=== PATIENT | male | born 1950 | race Caucasian/White ===

== ENCOUNTER 2017-11-07 09:00 | Outpatient (CLI) | payer MEDICARE, BC ==
--- NOTE | 2017-11-07 11:01 | MRI ---
MRI LEFT SHOULDER WITHOUT CONTRAST: HISTORY: M25.512, left shoulder pain. COMPARISON: None. FINDINGS: BICEPS: Mild extraarticular biceps tendon synovial fluid. Mild intraarticular tendinosis. GLENOID LABRUM: Abnormal increased fluid signal within the posterior labrum that is sequelae of degeneration and tear . ROTATOR CUFF: The subscapularis is intact. No full-thickness perforation of the rotator cuff. Mild bursal surface fraying of supraspinatus tendon. No full-thickness perforation. Minimal tendinosis supra- and infraspinatus tendons. SOFT TISSUES: There is extensive edema of the axillary process and inferior glenohumeral ligament. The subcoracoid fat is maintained. Low-grade edema of the rotator interval. BONES: No fracture and no malalignment. Mild degenerative disease of acromioclavicular joint as expected fo r age. MUSCLES: Normal muscle signal and bulk. IMPRESSION: 1. Extensive fluid signal along the axillary pouch and inferior glenohumeral ligament which is thick ened suggesting capsulitis. There is also small volume subacromial subdeltoid bursa effusion. 2. Minimal bursal surface fraying of the supraspinatus tendon. No full-thickness tear or perforatio n. POS: [facility]
== END 2017-11-07 09:01 | disposition home or self-care (01) ==
LOC: SCSMRI 09:00
PROVIDERS: ATTEND Orthopaedic Surgery
DX: M25.512 Pain in left shoulder (principal); M25.412 Effusion, left shoulder

== ENCOUNTER 2019-10-06 08:34 | Outpatient (CLI) | payer MEDICARE, BC ==
--- NOTE | 2019-10-06 15:48 | NM ---
NUCLEAR MEDICINE [place] BRAIN SCAN: DATE: 10/06/2019 HISTORY: 69-year-old male with ICD-10: G63, polyneuropathy in diseases classified elsewhere. TECHNIQUE: 4.6 mCi I-123 Ioflupane injected IV. 3 hours later, SPECT of brain obtained. FINDINGS: There is bilaterally symmetrical distribution of radiopharmaceutical in the bilateral caudate nuclei and putamina. IMPRESSION: Normal. POS: [facility]
== END 2019-10-06 08:35 | disposition home or self-care (01) ==
LOC: NM 08:34
PROVIDERS: ATTEND Psychiatry & Neurology Neurology
DX: G63 Polyneuropathy in diseases classified elsewhere (principal)
CPT/HCPCS: 78803; A9584

== ENCOUNTER 2021-01-11 13:25 | Outpatient (CLI) | payer MEDICARE, BC | END 2021-01-11 13:26 | disposition home or self-care (01) | LOC: CTENTCT 13:25 | PROVIDERS: ATTEND Otolaryngology Plastic Surgery within the Head & Neck | DX: J32.9 Chronic sinusitis, unspecified (principal) | CPT/HCPCS: 70486 ==

== ENCOUNTER 2021-01-26 08:22 | Outpatient (CLI) | payer MEDICARE, BC ==
[2021-01-26 10:22] LABS: Hemoglobin 13.9 g/dL (13.5-17.5)
[2021-01-26 10:47] LABS: Anion Gap 15 mmol/L (10-20); BUN (Urea Nitrogen) 18 mg/dL (8.4-25.7); Calc. Creatinine Clearance 0 mL/min (70-130); Calcium 9.4 mg/dL (7.8-10.44); Carbon Dioxide 27 mmol/L (23-31); Chloride 102 mmol/L (98-107); Glucose 135 mg/dL (80-115); Potassium 3.7 mmol/L (3.5-5.1); Sodium 140 mmol/L (136-145)
[2021-01-26 19:44] LABS: SARS-CoV-2 PCR by NAA Not Detected (NotDetected)
== END 2021-01-26 08:23 | disposition home or self-care (01) ==
LOC: LABBT 08:22
PROVIDERS: ATTEND Otolaryngology Plastic Surgery within the Head & Neck
DX: Z01.818 Encounter for other preprocedural examination (principal); J30.9 Allergic rhinitis, unspecified; J32.9 Chronic sinusitis, unspecified; J34.3 Hypertrophy of nasal turbinates; J34.2 Deviated nasal septum; J33.0 Polyp of nasal cavity; Z20.822 Contact with and (suspected) exposure to COVID-19
CPT/HCPCS: 80048; 85014; 85018; 93005; U0003; U0005; 93010

== ENCOUNTER 2021-01-31 06:50 | Day surgery (SDC) | payer MEDICARE, BC ==
[2021-01-30 12:38] VITALS: BMI 33.5
[2021-01-31] MEDS ORDERED: AFRIN NASAL MIST 15 ML BOT ONE ×2 (07:57→08:11)
[2021-01-31] MEDS ORDERED: Bacitracin Zinc Ointment 30 gm TUBE ONE (08:11)
[2021-01-31] MEDS ORDERED: Lidocaine 1% w/Epinephrine 1:100K 20 ML VIAL ONE (08:11)
[2021-01-31] MEDS ORDERED: Fentanyl 100 MCG/2 ML VIAL ONE (08:44)
[2021-01-31] MEDS ORDERED: Ondansetron PF 4 MG/2 ML Vial ONE (09:25)
[2021-01-31] MEDS ORDERED: Dexamethasone 20 MG/5 ML VIAL ONE (09:25)
[2021-01-31] MEDS ORDERED: Glycopyrrolate 0.2 MG/ML 5 ML SYRINGE ONE (09:25)
[2021-01-31] MEDS ORDERED: PHENYLEPHRINE-NS 100 MCG/ML 10 ML SYRINGE ONE (09:25)
[2021-01-31] MEDS ORDERED: PROPOFOL 200 MG/20 ML VIAL ONE (09:25)
[2021-01-31] MEDS ORDERED: Succinylcholine 200 MG/10 ml SYRINGE FS ONE (09:25)
[2021-01-31] MEDS ORDERED: Lidocaine 1% PF 5 ML VIAL ONE (09:25)
[2021-01-31] MEDS ORDERED: ePHEDrine Sulfate 50 MG/10 ML VIAL ONE (09:25)
[2021-01-31] MEDS ORDERED: Hydrocodone-Acetamin 15 ML UDCUP ONE (11:16)
== END 2021-01-31 12:00 | disposition home or self-care (01) ==
LOC: SDC 06:50
PROVIDERS: ATTEND Otolaryngology Plastic Surgery within the Head & Neck
PROC: 09TV8ZZ Resection of Left Ethmoid Sinus, Via Natural or Artificial Opening Endoscopic (ICD-10-PCS; principal; 2021-01-31)
PROC: 09TU8ZZ Resection of Right Ethmoid Sinus, Via Natural or Artificial Opening Endoscopic (ICD-10-PCS; 2021-01-31)
PROC: 099T8ZZ Drainage of Left Frontal Sinus, Via Natural or Artificial Opening Endoscopic (ICD-10-PCS; 2021-01-31)
PROC: 099Q8ZZ Drainage of Right Maxillary Sinus, Via Natural or Artificial Opening Endoscopic (ICD-10-PCS; 2021-01-31)
PROC: 099R8ZZ Drainage of Left Maxillary Sinus, Via Natural or Artificial Opening Endoscopic (ICD-10-PCS; 2021-01-31)
PROC: 099S8ZZ Drainage of Right Frontal Sinus, Via Natural or Artificial Opening Endoscopic (ICD-10-PCS; 2021-01-31)
PROC: 09TL8ZZ Resection of Nasal Turbinate, Via Natural or Artificial Opening Endoscopic (ICD-10-PCS; 2021-01-31)
PROC: 09SM0ZZ Reposition Nasal Septum, Open Approach (ICD-10-PCS; 2021-01-31)
DX: J32.8 Other chronic sinusitis (principal); J34.2 Deviated nasal septum; J34.3 Hypertrophy of nasal turbinates; J34.89 Other specified disorders of nose and nasal sinuses; J45.909 Unspecified asthma, uncomplicated; G47.30 Sleep apnea, unspecified; I12.9 Hypertensive chronic kidney disease with stage 1 through stage 4 chronic kidney disease, or unspecified chronic kidney disease; N18.2 Chronic kidney disease, stage 2 (mild); M45.9 Ankylosing spondylitis of unspecified sites in spine; F17.290 Nicotine dependence, other tobacco product, uncomplicated; E66.9 Obesity, unspecified; Z68.33 Body mass index [BMI] 33.0-33.9, adult; Z79.82 Long term (current) use of aspirin; Z79.899 Other long term (current) drug therapy; Z91.011 Allergy to milk products; Z91.018 Allergy to other foods
CPT/HCPCS: J1100; J2405; J2704; J3010; J7620

== ENCOUNTER 2021-09-17 10:42 | Outpatient (CLI) | payer MEDICARE, BC | END 2021-09-17 10:43 | disposition home or self-care (01) | LOC: BICRAD 10:42 | PROVIDERS: ATTEND Family Medicine | DX: R05.9 Cough, unspecified (principal) | CPT/HCPCS: 71046 ==

== ENCOUNTER 2024-07-01 12:26 | Outpatient (CLI) | payer MEDICARE | END 2024-07-01 12:27 | disposition home or self-care (01) | LOC: BICMRI 12:26 | PROVIDERS: ATTEND Family Medicine | DX: M47.22 Other spondylosis with radiculopathy, cervical region (principal); M47.813 Spondylosis without myelopathy or radiculopathy, cervicothoracic region; M50.11 Cervical disc disorder with radiculopathy, high cervical region; M50.121 Cervical disc disorder at C4-C5 level with radiculopathy; M50.122 Cervical disc disorder at C5-C6 level with radiculopathy; M50.123 Cervical disc disorder at C6-C7 level with radiculopathy; M51.35 Other intervertebral disc degeneration, thoracolumbar region; M47.815 Spondylosis without myelopathy or radiculopathy, thoracolumbar region; M51.16 Intervertebral disc disorders with radiculopathy, lumbar region; M48.061 Spinal stenosis, lumbar region without neurogenic claudication; M47.26 Other spondylosis with radiculopathy, lumbar region; M51.379 Other intervertebral disc degeneration, lumbosacral region without mention of lumbar back pain or lower extremity pain; M48.07 Spinal stenosis, lumbosacral region; M47.817 Spondylosis without myelopathy or radiculopathy, lumbosacral region; M25.78 Osteophyte, vertebrae | CPT/HCPCS: 72141; 72148 ==

== ENCOUNTER 2025-03-07 14:04 | Outpatient (CLI) | payer MEDICARE | END 2025-03-07 14:05 | disposition home or self-care (01) | LOC: BICRAD 14:04 | PROVIDERS: ATTEND Orthopaedic Surgery | DX: M54.50 Low back pain, unspecified (principal); M47.816 Spondylosis without myelopathy or radiculopathy, lumbar region; M41.9 Scoliosis, unspecified; Z98.1 Arthrodesis status | CPT/HCPCS: 72100 ==

== ENCOUNTER 2025-03-12 22:59 | Inpatient (IN) | payer MEDICARE ==
[2025-03-12 23:48] LABS: #Basophils 0.07 10x3/uL (0.0-0.2); #Eosinophils 0.32 10x3/uL (0.0-0.7); #Monocytes 0.69 10x3/uL (0.11-0.59); #Neutrophils 3.62 10x3/uL (1.40-6.50); %Basophils 1.0 % (0.0-1.0); %Eosinophils 4.8 % (0.0-10.0); %Lymphocytes 29.7 % (21.0-51.0); %Monocytes 10.3 % (0.0-10.0); %Neutrophils 54.1 % (42.0-75.0); Hematocrit 40.9 % (42.0-52.0); Hemoglobin 13.9 g/dL (14.0-18.0); Mean Corpuscular Hemoglobin 30.0 pg (27.0-31.0); Mean Corpuscular Volume 88.3 fL (78.0-98.0); Platelet Count 212 10x3/uL (130-400); Red Blood Cell (RBC) Count 4.63 mill/uL (4.70-6.10); White Blood Cell (WBC) Count 6.70 10x3/uL (4.8-10.8)
[2025-03-13 00:03] LABS: ALT (SGPT) 16 U/L (Less than 45); AST (SGOT) 23 U/L (11-34); Albumin 3.7 g/dL (3.1-4.5); Alkaline Phosphatase 103 U/L (40-110); Anion Gap 15 mmol/L (10-20); BUN (Urea Nitrogen) 27 mg/dL (8.4-25.7); Bilirubin, Total 0.7 mg/dL (0.3-1.2); Calc. Creatinine Clearance 0 mL/min (70-130); Calcium 9.3 mg/dL (7.8-10.44); Carbon Dioxide 26 mmol/L (23-31); Chloride 103 mmol/L (98-107); Globulin 3.5 g/dL (2.4-3.5); Glucose 186 mg/dL (83-110); Potassium 4.0 mmol/L (3.5-5.1); Sodium 140 mmol/L (136-145)
[2025-03-13] MEDS ORDERED: Ketorolac Tromethamine 30 MG (1 mL) VIAL ONE (00:50)
[2025-03-13] MEDS ORDERED: cefTRIAXone (ROCEPHIN) 2 GM VIAL ONE (00:57)
[2025-03-13] MEDS ORDERED: Acetaminophen/Codeine 30-300mg Tablet PO PRN (02:09)
[2025-03-13] MEDS ORDERED: Ondansetron PF 4 MG/2 ML Vial IVP PRN ×2 (02:09→02:15)
[2025-03-13] MEDS ORDERED: Acetaminophen 325 MG TAB PO PRN (02:15)
[2025-03-13] MEDS: Vancomycin (BATCH) 2.5 GM in Premix 1 BAG IVPB SCH (03:27)
[2025-03-13 03:35] VITALS: BMI 27.5
[2025-03-13 06:16] LABS: #Basophils 0.05 10x3/uL (0.0-0.2); #Eosinophils 0.34 10x3/uL (0.0-0.7); #Monocytes 0.74 10x3/uL (0.11-0.59); #Neutrophils 2.62 10x3/uL (1.40-6.50); %Basophils 0.9 % (0.0-1.0); %Eosinophils 6.1 % (0.0-10.0); %Lymphocytes 32.3 % (21.0-51.0); %Monocytes 13.3 % (0.0-10.0); %Neutrophils 47.0 % (42.0-75.0); Hematocrit 36.5 % (42.0-52.0); Hemoglobin 12.6 g/dL (14.0-18.0); Mean Corpuscular Hemoglobin 30.1 pg (27.0-31.0); Mean Corpuscular Volume 87.1 fL (78.0-98.0); Platelet Count 167 10x3/uL (130-400); Red Blood Cell (RBC) Count 4.19 mill/uL (4.70-6.10); White Blood Cell (WBC) Count 5.57 10x3/uL (4.8-10.8)
[2025-03-13 06:33] LABS: Anion Gap 13 mmol/L (10-20); BUN (Urea Nitrogen) 25 mg/dL (8.4-25.7); Calc. Creatinine Clearance 101 mL/min (70-130); Calcium 8.4 mg/dL (7.8-10.44); Carbon Dioxide 25 mmol/L (23-31); Chloride 107 mmol/L (98-107); Glucose 101 mg/dL (83-110); Potassium 3.9 mmol/L (3.5-5.1); Sodium 141 mmol/L (136-145)
[2025-03-13] MEDS: Famotidine/PF 20 mg/2ml Vial SLOW IVP SCH (09:56)
[2025-03-13] MEDS: Enoxaparin 40 MG (0.4 mL) SYRINGE SC SCH (09:56)
[2025-03-13] MEDS ORDERED: Ketorolac Tromethamine 30 MG (1 mL) VIAL IVP PRN (13:04)
[2025-03-13] MEDS: Vancomycin 1 GM in Premix 1 BAG IVPB SCH (13:12)
[2025-03-13] MEDS: Carvedilol 25 MG TAB PO SCH (20:26)
[2025-03-14 06:26] LABS: Vancomycin, Random 20.0 ug/mL (See Comment)
[2025-03-14 06:31] LABS: Anion Gap 14 mmol/L (10-20); BUN (Urea Nitrogen) 20 mg/dL (8.4-25.7); Calc. Creatinine Clearance 93 mL/min (70-130); Calcium 8.8 mg/dL (7.8-10.44); Carbon Dioxide 25 mmol/L (23-31); Chloride 106 mmol/L (98-107); Glucose 106 mg/dL (83-110); Magnesium 2.1 mg/dL (1.6-2.6); Potassium 4.0 mmol/L (3.5-5.1); Sodium 141 mmol/L (136-145)
[2025-03-14] MEDS: Aspirin 81 mg Enteric Coated Tablet PO SCH (08:10)
[2025-03-14] MEDS: Spironolactone 25 MG TAB PO SCH (09:01)
[2025-03-14] MEDS: Lisinopril 20 MG TAB PO SCH ×2 (15:46→16:03)
[2025-03-14] MEDS: NIFEdipine XL 30 MG ER.TAB PO SCH (20:11)
[2025-03-15 05:44] LABS: Anion Gap 12 mmol/L (10-20); BUN (Urea Nitrogen) 16 mg/dL (8.4-25.7); Calc. Creatinine Clearance 101 mL/min (70-130); Calcium 8.4 mg/dL (7.8-10.44); Carbon Dioxide 25 mmol/L (23-31); Chloride 106 mmol/L (98-107); Glucose 111 mg/dL (83-110); Magnesium 2.0 mg/dL (1.6-2.6); Potassium 3.7 mmol/L (3.5-5.1); Sodium 139 mmol/L (136-145)
[2025-03-15] MEDS: Spironolactone 25 MG TAB PO SCH (07:50)
[2025-03-15] MEDS: Lisinopril 20 MG TAB PO SCH (09:01)
[2025-03-15 12:19] VITALS: BP 143/80; TEMP 98.4
[2025-03-20] MEDS ORDERED: cloNIDine 0.2mg/24 Hour PATCH TD SCH (09:00)
== END 2025-03-15 16:45 | disposition home or self-care (01) | DRG 603 ==
LOC: ERS 22:59 → SURG B 03-13 02:08
PROVIDERS: ADMIT Hospitalist; ATTEND Emergency Medicine
DX: L03.116 Cellulitis of left lower limb (principal); L97.929 Non-pressure chronic ulcer of unspecified part of left lower leg with unspecified severity; I10 Essential (primary) hypertension; G60.9 Hereditary and idiopathic neuropathy, unspecified; Z98.890 Other specified postprocedural states; Z88.8 Allergy status to other drugs, medicaments and biological substances
CPT/HCPCS: 36415; 80048; 80053; 80202; 83036; 83605; 83735; 85025; 87070; 87081; 87205; 96365; 96367; 96375; 97139; J0692; J0696; J1308; J1650; J1885; J3373; J7030

== ENCOUNTER 2025-05-19 07:08 | Outpatient (CLI) | payer MEDICARE | END 2025-05-19 07:09 | disposition home or self-care (01) | LOC: RAD 07:08 | PROVIDERS: ATTEND Otolaryngology Plastic Surgery within the Head & Neck | DX: K21.9 Gastro-esophageal reflux disease without esophagitis (principal); R13.13 Dysphagia, pharyngeal phase | CPT/HCPCS: 74230 ==

== ENCOUNTER 2025-05-26 13:51 | Outpatient (CLI) | payer MEDICARE | END 2025-05-26 13:52 | disposition home or self-care (01) | LOC: BICRAD 13:51 | PROVIDERS: ATTEND Orthopaedic Surgery | DX: M54.50 Low back pain, unspecified (principal); M47.816 Spondylosis without myelopathy or radiculopathy, lumbar region; M48.16 Ankylosing hyperostosis [Forestier], lumbar region; M41.9 Scoliosis, unspecified; Z98.1 Arthrodesis status | CPT/HCPCS: 72100 ==